=== PATIENT | female | born 1955 | race Hispanic/Latino ===

== ENCOUNTER 2019-05-07 05:30 | Day surgery (SDC) | payer OTHER ==
[~2019-05-07] VITALS: Ht 165.1 cm; Wt 60.8 kg
[~2019-05-07 05:30] MED LIST: BACL10TA PO; FENT-77 TD; FOLI1TAB85 PO; TRAM50TA4 PO; TYLENOL PO
[2019-05-07] MEDS ORDERED: SODIUM CHLORIDE 0.9% 1000ML 1,000 ML IV ONE (05:43)
[2019-05-07 06:12] VITALS: BP 150/85
[2019-05-07] MEDS ORDERED: HYDR28OI10 TP (06:28)
[2019-05-07] MEDS ORDERED: LACT10SO PO (06:28)
[2019-05-07] MEDS ORDERED: PROPOFOL 10 MG/ML 20ML VIAL IV ONE (07:28)
[2019-05-07 07:50] VITALS: BP 157/87
[2019-05-07 07:55] VITALS: BP 161/81
[2019-05-07 08:00] VITALS: BP 159/84
[2019-05-07 08:05] VITALS: BP 170/86
== END 2019-05-07 08:18 | disposition home or self-care (01) ==
LOC: ENDO 05:30 → DAH 05:47 → ENDO 08:18
PROVIDERS: ATTEND Internal Medicine Gastroenterology
DX: C20 Malignant neoplasm of rectum (principal); D12.3 Benign neoplasm of transverse colon; K64.1 Second degree hemorrhoids; K57.30 Diverticulosis of large intestine without perforation or abscess without bleeding; I12.0 Hypertensive chronic kidney disease with stage 5 chronic kidney disease or end stage renal disease; N18.6 End stage renal disease; M19.90 Unspecified osteoarthritis, unspecified site; Z85.51 Personal history of malignant neoplasm of bladder; Z98.890 Other specified postprocedural states; Z90.49 Acquired absence of other specified parts of digestive tract; Z98.49 Cataract extraction status, unspecified eye; Z87.891 Personal history of nicotine dependence; Z79.899 Other long term (current) drug therapy; Z99.2 Dependence on renal dialysis
CPT/HCPCS: 36415; 45380; 45385; 84132; A4606; J2704; J7030